=== PATIENT | female | born 2000 | race Caucasian/White ===

== ENCOUNTER 2023-05-12 01:23 | Emergency (ER) | payer OTHER, SELFPAY ==
[2023-05-12 01:27] VITALS: BP 120/79; PULSE 77; RESP 16; TEMP 36.8
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
[2023-05-12] MEDS: Acetaminophen 500 MG TAB 1000 MG PO (02:25)
[2023-05-12 02:32] LABS: Bilirubin Negative (Negative); Blood Trace-lysed (Negative); Clarity Clear (Clear); Glucose Negative (Negative); Ketones Negative (Negative); Leukocyte Esterase Negative (Negative); Nitrite Negative (Negative); Specific Gravity >= 1.030 (1.005-1.025); Urobilinogen 0.2 mg/dL (Up to 0.2); pH 5.5 (5-8)
[2023-05-12 02:40] LABS: Bacteria Rare HPF (Negative); C & S Indicated? No; Crystals Negative HPF (Negative); Epithelial Cells Rare HPF (Negative); Mucus Negative (Negative); WBC 0-2 HPF (0-5)
[2023-05-12 02:42] LABS: Abs Immature Grans 0.04 10^3/uL (0.0-0.06); Absolute Basophil Count 0.03 10^3/uL (0.0-0.2); Absolute Lymphocyte Count 2.37 10^3/uL (1.2-3.4); Absolute Monocyte Count 0.64 10^3/uL (0.1-0.8); Absolute Neutrophil Count 4.94 10^3/uL (1.2-6.7); Basophils % 0.4; Eosinophils % 1.2; HCT 39.9 % (36.0-46.0); HGB 13.7 g/dL (11.2-15.7); Immature Grans % 0.5; Lymphocytes % 29.2; MCH 31.3 pg (27.0-33.0); MCHC 34.3 % (32.0-36.0); MCV 91 fL (80-95); MPV 9.2 fL (8.0-11.0); Monocytes % 7.9; Neutrophils % 60.8; Platelet Count 392 10^3/uL (130-400); RBC 4.38 10^6/uL (3.93-5.22); RDW 11.8 % (11.7-14.6); RDW-SD 39.7 fL; WBC 8.12 10^3/uL (4.4-10.8)
[2023-05-12 02:48] LABS: Lipase 25 U/L (16-77)
[2023-05-12 02:50] LABS: ALT 41 U/L (14-59); AST 22 U/L (15-37); Albumin 4.3 g/dL (3.4-5.0); Alkaline Phosphatase 65 U/L (46-116); Anion Gap 7.8 mmol/L (3-11); BUN 16 mg/dL (7-18); Bilirubin, Total 0.3 mg/dL (0.2-1.0); CO2 28.2 mmol/L (21.0-32.0); CREATININE 0.8 mg/dL (0.55-1.02); Calcium 9.5 mg/dL (8.5-10.1); Chloride 102 mmol/L (98-107); Estimated GFR 107.44 (mL/min/1.73m2); Glucose 103 mg/dL (74-106); HCG Quant, Pregnancy 1 mIU/mL (1-3); Potassium 3.4 mmol/L (3.5-5.1); Sodium 138 mmol/L (136-145)
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
[2023-05-12] MEDS: Ketorolac 15 MG/ML VIAL IVP (03:22)
[2023-05-12 04:34] VITALS: BP 105/77; PULSE 62; RESP 16
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
== END 2023-05-12 04:45 | disposition home or self-care (01) ==
LOC: ER 05:07
PROVIDERS: Emergency Provider Student in an Organized Health Care Education/Training Program
DX: S13.4XXA Sprain of ligaments of cervical spine, initial encounter (principal); M25.561 Pain in right knee; M25.562 Pain in left knee; V89.2XXA Person injured in unspecified motor-vehicle accident, traffic, initial encounter
CPT/HCPCS: 80053; 81025; 83690; 96374; 99284; 70450; 72125; 73030; 81003; 81015; 84702; 85025; 99283; J1885